=== PATIENT | female | born 1975 | race Caucasian/White ===

== ENCOUNTER 2023-10-07 09:42 | Day surgery (SDC) | payer OTHER ==
[~2023-10-07] VITALS: Ht 162.6 cm; Wt 69.9 kg
[~2023-10-07 09:42] MED LIST: PROZAC40 MG PO
[2023-10-07] MEDS ORDERED: LACTATED RINGER'S 1,000 ML IV ONE (09:48)
[2023-10-07] MEDS ORDERED: FAMOTIDINE 10MG/ML 2ML SDV IV ONE (09:48)
[2023-10-07 11:53] VITALS: BP 148/97
[2023-10-07] MEDS ORDERED: PROPOFOL 200 MG/20 ML VIAL IV ONE (12:18)
[2023-10-07] MEDS ORDERED: GLYCOPYRROLATE 0.2 MG/ML IV ONE (12:18)
[2023-10-07] MEDS ORDERED: LIDOCAINE HCL 2% 2ML SDV IV ONE (12:18)
== END 2023-10-07 11:35 | disposition home or self-care (01) | DRG 951 ==
LOC: ORM 09:42
PROVIDERS: ATTEND Internal Medicine Gastroenterology
PROC: 0DJD8ZZ Inspection of Lower Intestinal Tract, Via Natural or Artificial Opening Endoscopic (ICD-10-PCS; principal; 2023-10-07)
DX: Z12.11 Encounter for screening for malignant neoplasm of colon (principal); K64.8 Other hemorrhoids; K59.00 Constipation, unspecified; F41.9 Anxiety disorder, unspecified